=== PATIENT | male | born 2000 | race Caucasian/White ===

== ENCOUNTER 2021-07-06 18:59 | Emergency (ER) | payer MEDICAID ==
[~2021-07-06] VITALS: Ht 172.7 cm; Wt 65.0 kg
[2021-07-06 19:33] VITALS: BP 121/84
== END 2021-07-06 20:03 | disposition home or self-care (01) ==
LOC: ER 19:00
DX: U07.1 COVID-19 (principal); R09.89 Other specified symptoms and signs involving the circulatory and respiratory systems; R19.7 Diarrhea, unspecified; J02.9 Acute pharyngitis, unspecified; R51.9 Headache, unspecified; R05.9 Cough, unspecified; Z88.7 Allergy status to serum and vaccine
CPT/HCPCS: 87635; 99283; C9803